=== PATIENT | female | born 1975 | race Caucasian/White ===

== ENCOUNTER 2017-12-19 19:05 | Emergency (ER) | payer BC ==
[2017-12-19 19:45] VITALS: RESP 18; TEMP 98.1; BMI 30.9
--- NOTE | 2017-12-19 19:55 | ED PDOC ---
Arrival/HPI - General Chief Complaint: Back Pain Time Seen by Provider: 12/19/17 19:38 Historian: Patient - Critical Care Narrative Critical Care (Text): 12/19/17 19:51 Pt is a 42 yr old female who presents today for severe low back pain x 7hrs after trying to lift a heavy bucket at home. Pt states she heard a snap and could not extend the spine. Pt put icy hot on the area but felt the pain increasing over time. Denies trauma, loss of sensation, bowel or bladder change , paresthesia, nausea, vomiting, diarrhea, or any other complaints Past Medical History - Provider Review Nursing Documentation Reviewed: Yes - Travel History Have you recently traveled outside [place] w/in the past 3 mons?: No - Infectious Disease Hx of Infectious Diseases: None - Psychiatric Hx Substance Use: No - Anesthesia Hx Anesthesia: No Family/Social History - Physician Review Nursing Documentation Reviewed: Yes Family/Social History: Unknown Family HX Smoking Status: Never Smoked Hx Alcohol Use: No Hx Substance Use: No Allergies/Home Meds Allergies/Adverse Reactions: Allergies No Known Allergies Allergy (Verified 12/19/17 19:33) Review of Systems - Physician Review All systems were reviewed & negative as marked: Yes - Review of Systems Constitutional: Normal Eyes: Normal ENT: Normal Respiratory: Normal Cardiovascular: Normal Gastrointestinal: Normal Genitourinary Female: Normal Musculoskeletal: Back Pain Skin: Normal Neurological: Normal Endocrine: Normal Hemo/Lymphatic: Normal Psychiatric: Normal Physical Exam Vital Signs Reviewed: Yes Vital Signs Temp Pulse Resp BP Pulse Ox 12/19/17 21:40 78 18 115/77 100 12/19/17 20:17 74 18 111/74 99 12/19/17 19:27 98.1 F 81 18 132/76 100 Temperature: Afebrile Blood Pressure: Normal Pulse: Regular Respiratory Rate: Normal Appearance: Positive for: Well-Appearing, Non-Toxic, Comfortable Pain Distress: None Mental Status: Positive for: Alert and Oriented X 3 - Systems Exam Head: Present: Atraumatic, Normocephalic Pupils: Present: PERRL Extroacular Muscles: Present: EOMI Conjunctiva: Present: Normal Mouth: Present: Moist Mucous Membranes Neck: Present: Normal Range of Motion Respiratory/Chest: Present: Clear to Auscultation, Good Air Exchange. No: Respiratory Distress, Accessory Muscle Use Cardiovascular: Present: Regular Rate and Rhythm, Normal S1, S2. No: Murmurs Abdomen: No: Tenderness, Distention, Peritoneal Signs Back: Present: Normal Inspection Upper Extremity: Present: Normal Inspection, Normal ROM, NORMAL PULSES, Neurovascularly Intact, Capillary Refill < 2s, Norm 2-Pt Discrimination. No: Cyanosis, Edema, Tenderness (left L4 paraspinals), Swelling, Erythema Lower Extremity: Present: Normal Inspection, NORMAL PULSES, Normal ROM. No: Edema, CALF TENDERNESS Neurological: Present: GCS=15, CN II-XII Intact, Speech Normal, Motor Func Grossly Intact, Normal Sensory Function, Normal Cerebellar Funct, Gait Normal ( antalgic ) Skin: Present: Warm, Dry, Normal Color. No: Rashes Psychiatric: Present: Alert, Oriented x 3, Normal Insight, Normal Concentration Medical Decision Making ED Course and Treatment: 12/19/17 19:55 Impression Pt is a 42 yr old female who presents today for severe low back pain x 7hrs after trying to lift a heavy bucket at home. No radiation of pain while resting (+) SLR on the left, SILT, neurovasc. intact Working DX: Prolapsed disc vs lumbosacral muscle strain Plan LS XR to r/o fracture Pain managment assess and dispo Progress Note No fractures or dislocations appreciated on XR of the LS Advised to rest for 1 day and take Flexeril and ibuprofen Discussed medication SEs and cautions Follow up with pain management for MRI and on-going care - RAD Interpretation Radiology Orders: 12/19/17 19:50 LS SPINE AP/LAT [RAD] Stat - Medication Orders Current Medication Orders: Discontinued Medications Ketorolac Tromethamine (Toradol) 30 mg IM STAT STA Stop: 12/19/17 19:59 Last Admin: 12/19/17 20:20 Dose: 30 mg MAR Pain Assessment Document 12/19/17 20:20 JOL (Rec: 12/19/17 20:20 JOL [id number]) Pain Reassessment Is this a pain reassessment? No Sleep Is patient sleeping during reassessment? No Presence of Pain Presence of Pain Yes Pain Scale Used Pain Scale Used Numeric Location Pain Location Body Site Back Description Intensity of Pain at present 8 IM Administration Charges Document 12/19/17 20:20 JOL (Rec: 12/19/17 20:20 JOL [id number]) Injection Site MAR Injection Site Left Deltoid Charges for Administration # of IM Administrations 1 Disposition/Present on Arrival - Present on Arrival Any Indicators Present on Arrival: Yes History of DVT/PE: No History of Uncontrolled Diabetes: No Urinary Catheter: No History of Decub. Ulcer: No History Surgical Site Infection Following: None - Disposition Have Diagnosis and Disposition been Completed?: Yes Diagnosis: Lumbago due to displacement of intervertebral disc, Lumbar spine strain, Myalgia Disposition: HOME/ ROUTINE Disposition Time: 21:13 Patient Plan: Discharge Condition: STABLE Discharge Instructions (ExitCare): Lumbar Muscle Strain (DC), Do I Need an X- ray (or Other Test) for Low Back Pain?, Herniated Disc Exercises Additional Instructions: Harriet, thank you for letting us take care of you today. Your provider was ANAI Graham. You were treated for low back pain and muscle strain. The emergency medical care you received today was directed at your acute symptoms. If you were prescribed any medication, please fill it and take as directed. It may take several days for your symptoms to resolve. Return to the Emergency Department if your symptoms worsen, do not improve, or if you have any other problems. Please see a paint specialist in the next few days to have an MRI done; you may need further treatment that includes physical therapy Please contact your doctor or call one of the physicians/clinics you have been referred to that are listed on the Patient Visit Information form that is included in your discharge packet. Bring any paperwork you were given at discharge with you along with any medications you are taking to your follow up visit. Our treatment cannot replace ongoing medical care by a primary care provider (PCP) outside of the emergency department. Thank you for allowing the [facility] team to be part of your care today. If you had an X-Ray or CT scan: A Radiologist will review the ED reading if any change in treatment is needed we will contact you. Prescriptions: Cyclobenzaprine [Flexeril] 5 mg PO TID 5 Days #15 tab Ibuprofen [Motrin Tab] 600 mg PO Q6 PRN 5 Days #20 tab PRN Reason: pain/fever Referrals: Oxana Santillan MD [Primary Care Provider] - Follow up with primary lIdefonso Morales MD [Staff Provider] - Follow up with primary Forms: [employer] (Samoan), WORK NOTE
[2017-12-20 01:53] VITALS: BP 115/77; PULSE 78; O2SAT 100
--- NOTE | 2017-12-20 09:28 | RAD ---
PROCEDURE: Radiographs of the Lumbar Spine. HISTORY: Back pain COMPARISON: No prior. FINDINGS: BONES: Normal alignment. No listhesis. No fracture. DISC SPACES: Unremarkable. OTHER FINDINGS: None. IMPRESSION: Unremarkable radiographs of the lumbar spine.
== END 2017-12-19 21:40 | disposition home or self-care (01) ==
LOC: ED 19:05
DX: S39.012A Strain of muscle, fascia and tendon of lower back, initial encounter (principal); X50.0XXA Overexertion from strenuous movement or load, initial encounter; Y92.009 Unspecified place in unspecified non-institutional (private) residence as the place of occurrence of the external cause; M51.26 Other intervertebral disc displacement, lumbar region; M79.1 Myalgia
CPT/HCPCS: 72100; 96372; 99284; J1885